=== PATIENT | male | born 1935 | race Caucasian/White ===

== ENCOUNTER 2020-08-30 17:28 | Inpatient (IN) ==
[2020-08-31 08:17] LABS: Basophils % 0.3 %; Eosinophils # 0.1 K/mcL (0.0-0.6); Eosinophils % 0.9 %; Hemoglobin 11.7 g/dL (12.9-16.9); Immature Granulocytes % 0.5 % (0-4); Lymphocytes # 0.7 K/mcL (0.6-4.6); Lymphocytes % 10.8 %; Mean Corpuscular HGB Conc 33.4 g/dL (31.6-35.5); Mean Corpuscular Hemoglobin 31.8 pg (28.0-33.3); Mean Corpuscular Volume 95.1 fL (83.0-100.0); Mean Platelet Volume 9.6 fL (9.4-12.4); Monocytes # 0.3 K/mcL (0.0-1.3); Monocytes % 5.2 %; Neutrophils # 5.4 K/mcL (1.6-8.9); Platelet Count 177 K/mcL (140-400); Red Blood Count 3.68 M/mcL (4.19-5.50); Red Cell Distribution Width 12.2 % (11.5-14.5); Segmented Neutrophils % 82.3 %; White Blood Count 6.5 K/mcL (4.3-11.1)
[2020-08-31 08:33] LABS: BUN/Creatinine Ratio 24 (6-26); Blood Urea Nitrogen 16 mg/dL (8-23); Calcium 8.2 mg/dL (8.6-10.3); Carbon Dioxide 28 mEq/L (23-29); Chloride 97 mEq/L (98-107); Glucose 104 mg/dL (70-105); Osmolality,Calculated 271 (280-300); Potassium 3.8 mEq/L (3.5-5.1); Sodium 130 mEq/L (136-145); eGFR For African Americans > 60 (> 60); eGFR For Non-African Americans > 60 (> 60)
[2020-08-31] MEDS: Aspirin Enteric Coated 81 MG Tablet PO SCH (09:07)
[2020-08-31] MEDS: *HR* Rivaroxaban 10 MG TABLET PO SCH (09:07)
[2020-08-31 11:00] LABS: Bilirubin,Urine Small (Negative); Blood,Urine Trace-intact (Negative); Clarity,Urine Clear (Clear); Color,Urine Yellow (Yellow); Glucose,Urine (UA) 100 mg/dL (Normal); Ketones,Urine Trace mg/dL (Negative); Leukocyte Esterase,Urine Negative (Negative); Nitrite,Urine Negative (Negative); PH,Urine 8.5 pH Units (5.0-8.0); Protein,Urine 30 mg/dL (Neg-Trace); Urobilinogen,Urine >=8.0 mg/dL (Normal)
[2020-08-31 11:44] LABS: RBC,Urine 15-30 per hpf (0-3)
[2020-08-31 11:45] LABS: Sperm,Urine Present per hpf (None Seen)
[2020-08-31] MEDS: Acetaminophen 325 MG TABLET PO PRN (16:31)
[2020-09-01] MEDS: Acetaminophen 325 MG TABLET PO PRN ×2 (01:35→20:00)
[2020-09-01] MEDS: Aspirin Enteric Coated 81 MG Tablet PO SCH (08:40)
[2020-09-01] MEDS: *HR* Rivaroxaban 10 MG TABLET PO SCH (08:40)
[2020-09-02] MEDS: Aspirin Enteric Coated 81 MG Tablet PO SCH (08:40)
[2020-09-02] MEDS: Multivit/Ca/Min/Fe/FA 1 TAB TABLET PO SCH (08:40)
[2020-09-02] MEDS: Cholecalciferol (D-3) 1,000 UNIT (25MCG) TABLET PO SCH (08:40)
[2020-09-02] MEDS: *HR* Rivaroxaban 10 MG TABLET PO SCH (08:40)
[2020-09-02] MEDS: Acetaminophen 325 MG TABLET PO PRN (21:05)
[2020-09-03] MEDS: Acetaminophen 325 MG TABLET PO PRN ×2 (06:20→17:46)
[2020-09-03] MEDS: Cholecalciferol (D-3) 1,000 UNIT (25MCG) TABLET PO SCH (10:19)
[2020-09-03] MEDS: Aspirin Enteric Coated 81 MG Tablet PO SCH (10:19)
[2020-09-03] MEDS: Multivit/Ca/Min/Fe/FA 1 TAB TABLET PO SCH (10:19)
[2020-09-04] MEDS: Acetaminophen 325 MG TABLET PO PRN ×2 (05:10→20:43)
[2020-09-04] MEDS: Multivit/Ca/Min/Fe/FA 1 TAB TABLET PO SCH (09:46)
[2020-09-04] MEDS: Aspirin Enteric Coated 81 MG Tablet PO SCH (09:46)
[2020-09-04] MEDS: Cholecalciferol (D-3) 1,000 UNIT (25MCG) TABLET PO SCH (09:46)
[2020-09-05] MEDS: Acetaminophen 325 MG TABLET PO PRN ×2 (06:51→19:10)
[2020-09-05] MEDS: Aspirin Enteric Coated 81 MG Tablet PO SCH (09:47)
[2020-09-05] MEDS: Cholecalciferol (D-3) 1,000 UNIT (25MCG) TABLET PO SCH (09:47)
[2020-09-05] MEDS: Multivit/Ca/Min/Fe/FA 1 TAB TABLET PO SCH (09:47)
[2020-09-06] MEDS: Aspirin Enteric Coated 81 MG Tablet PO SCH (07:59)
[2020-09-06] MEDS: Multivit/Ca/Min/Fe/FA 1 TAB TABLET PO SCH (08:00)
[2020-09-06] MEDS: Cholecalciferol (D-3) 1,000 UNIT (25MCG) TABLET PO SCH (08:00)
[2020-09-06] MEDS: Acetaminophen 325 MG TABLET PO PRN (17:09)
[2020-09-07] MEDS: Aspirin Enteric Coated 81 MG Tablet PO SCH (09:50)
[2020-09-07] MEDS: Multivit/Ca/Min/Fe/FA 1 TAB TABLET PO SCH (09:50)
[2020-09-07] MEDS: Cholecalciferol (D-3) 1,000 UNIT (25MCG) TABLET PO SCH (09:50)
[2020-09-07] MEDS: Acetaminophen 325 MG TABLET PO PRN (18:35)
[2020-09-08] MEDS: Cholecalciferol (D-3) 1,000 UNIT (25MCG) TABLET PO SCH (08:04)
[2020-09-08] MEDS: Multivit/Ca/Min/Fe/FA 1 TAB TABLET PO SCH (08:04)
[2020-09-08] MEDS: Aspirin Enteric Coated 81 MG Tablet PO SCH (08:04)
[2020-09-09] MEDS: Aspirin Enteric Coated 81 MG Tablet PO SCH (08:38)
[2020-09-09] MEDS: Cholecalciferol (D-3) 1,000 UNIT (25MCG) TABLET PO SCH (08:38)
[2020-09-09] MEDS: Multivit/Ca/Min/Fe/FA 1 TAB TABLET PO SCH (08:38)
[2020-09-10] MEDS: Cholecalciferol (D-3) 1,000 UNIT (25MCG) TABLET PO SCH (07:41)
[2020-09-10] MEDS: Multivit/Ca/Min/Fe/FA 1 TAB TABLET PO SCH (07:41)
[2020-09-10] MEDS: Aspirin Enteric Coated 81 MG Tablet PO SCH (07:41)
[2020-09-10] MEDS: Sennosides/Docusate Sodium TABLET PO SCH (08:40)
[2020-09-11] MEDS: Sennosides/Docusate Sodium TABLET PO SCH (08:22)
[2020-09-11] MEDS: Cholecalciferol (D-3) 1,000 UNIT (25MCG) TABLET PO SCH (08:22)
[2020-09-11] MEDS: Aspirin Enteric Coated 81 MG Tablet PO SCH (08:23)
[2020-09-11] MEDS: Multivit/Ca/Min/Fe/FA 1 TAB TABLET PO SCH (08:23)
[2020-09-12] MEDS: Cholecalciferol (D-3) 1,000 UNIT (25MCG) TABLET PO SCH (08:10)
[2020-09-12] MEDS: Aspirin Enteric Coated 81 MG Tablet PO SCH (08:10)
[2020-09-12] MEDS: Sennosides/Docusate Sodium TABLET PO SCH (08:10)
[2020-09-12] MEDS: Multivit/Ca/Min/Fe/FA 1 TAB TABLET PO SCH (08:10)
[2020-09-13 07:21] LABS: Bilirubin,Urine Negative (Negative); Blood,Urine Small (Negative); Clarity,Urine Cloudy (Clear); Color,Urine Yellow (Yellow); Glucose,Urine (UA) Normal (Normal); Ketones,Urine Negative (Negative); Leukocyte Esterase,Urine Large (Negative); Nitrite,Urine Positive (Negative); PH,Urine >=9.0 pH Units (5.0-8.0); Protein,Urine 30 mg/dL (Neg-Trace); Specific Gravity,Urine 1.015 (1.010-1.025)
[2020-09-13 07:36] LABS: Bacteria,Urine Many per hpf (None-Few)
[2020-09-13] MEDS: Aspirin Enteric Coated 81 MG Tablet PO SCH (08:19)
[2020-09-13] MEDS: Multivit/Ca/Min/Fe/FA 1 TAB TABLET PO SCH (08:19)
[2020-09-13] MEDS: Cholecalciferol (D-3) 1,000 UNIT (25MCG) TABLET PO SCH (08:20)
[2020-09-13] MEDS: Sennosides/Docusate Sodium TABLET PO SCH (08:23)
[2020-09-13] MEDS: Acetaminophen 325 MG TABLET PO PRN (08:24)
[2020-09-14] MEDS: Sennosides/Docusate Sodium TABLET PO SCH (09:30)
[2020-09-14] MEDS: Cholecalciferol (D-3) 1,000 UNIT (25MCG) TABLET PO SCH (09:30)
[2020-09-14] MEDS: Multivit/Ca/Min/Fe/FA 1 TAB TABLET PO SCH (09:31)
[2020-09-14] MEDS: Aspirin Enteric Coated 81 MG Tablet PO SCH (09:31)
[2020-09-14] MEDS: Acetaminophen 325 MG TABLET PO PRN (23:04)
[2020-09-15] MEDS: Sennosides/Docusate Sodium TABLET PO SCH (08:49)
[2020-09-15] MEDS: Cholecalciferol (D-3) 1,000 UNIT (25MCG) TABLET PO SCH (08:49)
[2020-09-15] MEDS: Multivit/Ca/Min/Fe/FA 1 TAB TABLET PO SCH (08:49)
[2020-09-15] MEDS: Aspirin Enteric Coated 81 MG Tablet PO SCH (08:49)
[2020-09-16] MEDS: Sennosides/Docusate Sodium TABLET PO SCH (07:57)
[2020-09-16] MEDS: Aspirin Enteric Coated 81 MG Tablet PO SCH (07:57)
[2020-09-16] MEDS: Multivit/Ca/Min/Fe/FA 1 TAB TABLET PO SCH (07:57)
[2020-09-16] MEDS: Cholecalciferol (D-3) 1,000 UNIT (25MCG) TABLET PO SCH (07:58)
[2020-09-17] MEDS: Aspirin Enteric Coated 81 MG Tablet PO SCH (08:15)
[2020-09-17] MEDS: Sennosides/Docusate Sodium TABLET PO SCH (08:15)
[2020-09-17] MEDS: Cholecalciferol (D-3) 1,000 UNIT (25MCG) TABLET PO SCH (08:15)
[2020-09-17] MEDS: Multivit/Ca/Min/Fe/FA 1 TAB TABLET PO SCH (08:16)
[2020-09-18 06:11] LABS: Basophils % 0.6 %; Eosinophils # 0.1 K/mcL (0.0-0.6); Eosinophils % 2.1 %; Hematocrit 27.2 % (37.5-50.1); Hemoglobin 9.1 g/dL (12.9-16.9); Immature Granulocytes % 0.4 % (0-4); Lymphocytes # 0.7 K/mcL (0.6-4.6); Lymphocytes % 13.6 %; Mean Corpuscular HGB Conc 33.5 g/dL (31.6-35.5); Mean Corpuscular Hemoglobin 31.3 pg (28.0-33.3); Mean Corpuscular Volume 93.5 fL (83.0-100.0); Mean Platelet Volume 8.9 fL (9.4-12.4); Monocytes # 0.4 K/mcL (0.0-1.3); Monocytes % 8.4 %; Neutrophils # 3.9 K/mcL (1.6-8.9); Platelet Count 230 K/mcL (140-400); Red Blood Count 2.91 M/mcL (4.19-5.50); Red Cell Distribution Width 12.7 % (11.5-14.5); Segmented Neutrophils % 74.9 %; White Blood Count 5.2 K/mcL (4.3-11.1)
[2020-09-18 06:37] LABS: BUN/Creatinine Ratio 47 (6-26); Blood Urea Nitrogen 25 mg/dL (8-23); Carbon Dioxide 26 mEq/L (23-29); Chloride 98 mEq/L (98-107); Glucose 94 mg/dL (70-105); Osmolality,Calculated 276 (280-300); Potassium 4.2 mEq/L (3.5-5.1); Sodium 131 mEq/L (136-145); eGFR For African Americans > 60 (> 60); eGFR For Non-African Americans > 60 (> 60)
[2020-09-18] MEDS: Sennosides/Docusate Sodium TABLET PO SCH (08:35)
[2020-09-18] MEDS: Aspirin Enteric Coated 81 MG Tablet PO SCH (08:36)
[2020-09-18] MEDS: Cholecalciferol (D-3) 1,000 UNIT (25MCG) TABLET PO SCH (08:36)
[2020-09-18] MEDS: Multivit/Ca/Min/Fe/FA 1 TAB TABLET PO SCH (08:36)
[2020-09-19] MEDS: Cholecalciferol (D-3) 1,000 UNIT (25MCG) TABLET PO SCH (08:43)
[2020-09-19] MEDS: Sennosides/Docusate Sodium TABLET PO SCH (08:43)
[2020-09-19] MEDS: Multivit/Ca/Min/Fe/FA 1 TAB TABLET PO SCH (08:44)
[2020-09-19] MEDS: Aspirin Enteric Coated 81 MG Tablet PO SCH (08:44)
[2020-09-20] MEDS: Aspirin Enteric Coated 81 MG Tablet PO SCH (09:35)
[2020-09-20] MEDS: Multivit/Ca/Min/Fe/FA 1 TAB TABLET PO SCH (09:35)
[2020-09-20] MEDS: Cholecalciferol (D-3) 1,000 UNIT (25MCG) TABLET PO SCH (09:36)
[2020-09-20] MEDS: Sennosides/Docusate Sodium TABLET PO SCH (09:36)
[2020-09-21] MEDS: Aspirin Enteric Coated 81 MG Tablet PO SCH (08:47)
[2020-09-21] MEDS: Cholecalciferol (D-3) 1,000 UNIT (25MCG) TABLET PO SCH (08:47)
[2020-09-21] MEDS: Sennosides/Docusate Sodium TABLET PO SCH (08:48)
[2020-09-21] MEDS: Multivit/Ca/Min/Fe/FA 1 TAB TABLET PO SCH (08:48)
[2020-09-21] MEDS: Furosemide 20 MG TABLET PO SCH (17:34)
[2020-09-22] MEDS: Cholecalciferol (D-3) 1,000 UNIT (25MCG) TABLET PO SCH (09:32)
[2020-09-22] MEDS: Aspirin Enteric Coated 81 MG Tablet PO SCH (09:32)
[2020-09-22] MEDS: Sennosides/Docusate Sodium TABLET PO SCH (09:32)
[2020-09-22] MEDS: Multivit/Ca/Min/Fe/FA 1 TAB TABLET PO SCH (09:33)
[2020-09-22] MEDS: Furosemide 20 MG TABLET PO SCH ×2 (09:33→16:04)
[2020-09-23] MEDS: Sennosides/Docusate Sodium TABLET PO SCH (09:47)
[2020-09-23] MEDS: Aspirin Enteric Coated 81 MG Tablet PO SCH (09:48)
[2020-09-23] MEDS: Furosemide 20 MG TABLET PO SCH ×2 (09:50→16:40)
[2020-09-23] MEDS: Cholecalciferol (D-3) 1,000 UNIT (25MCG) TABLET PO SCH (09:50)
[2020-09-23] MEDS: Multivit/Ca/Min/Fe/FA 1 TAB TABLET PO SCH (09:50)
[2020-09-24] MEDS: Sennosides/Docusate Sodium TABLET PO SCH (09:07)
[2020-09-24] MEDS: Aspirin Enteric Coated 81 MG Tablet PO SCH (09:07)
[2020-09-24] MEDS: Furosemide 20 MG TABLET PO SCH ×2 (09:07→16:31)
[2020-09-24] MEDS: Multivit/Ca/Min/Fe/FA 1 TAB TABLET PO SCH (09:07)
[2020-09-24] MEDS: Cholecalciferol (D-3) 1,000 UNIT (25MCG) TABLET PO SCH (09:07)
[2020-09-24 09:32] LABS: Hematocrit 32.3 % (37.5-50.1); Hemoglobin 10.4 g/dL (12.9-16.9); Mean Corpuscular HGB Conc 32.2 g/dL (31.6-35.5); Mean Corpuscular Hemoglobin 30.2 pg (28.0-33.3); Mean Corpuscular Volume 93.9 fL (83.0-100.0); Mean Platelet Volume 9.1 fL (9.4-12.4); Platelet Count 286 K/mcL (140-400); Red Blood Count 3.44 M/mcL (4.19-5.50); White Blood Count 5.3 K/mcL (4.3-11.1)
[2020-09-24 09:45] LABS: BUN/Creatinine Ratio 40 (6-26); Blood Urea Nitrogen 23 mg/dL (8-23); Calcium 8.3 mg/dL (8.6-10.3); Carbon Dioxide 29 mEq/L (23-29); Chloride 99 mEq/L (98-107); Glucose 106 mg/dL (70-105); Osmolality,Calculated 282 (280-300); Potassium 3.8 mEq/L (3.5-5.1); Sodium 134 mEq/L (136-145); eGFR For African Americans > 60 (> 60); eGFR For Non-African Americans > 60 (> 60)
[2020-09-25] MEDS: Furosemide 20 MG TABLET PO SCH ×2 (08:53→16:02)
[2020-09-25] MEDS: Multivit/Ca/Min/Fe/FA 1 TAB TABLET PO SCH (08:53)
[2020-09-25] MEDS: Aspirin Enteric Coated 81 MG Tablet PO SCH (08:53)
[2020-09-25] MEDS: Cholecalciferol (D-3) 1,000 UNIT (25MCG) TABLET PO SCH (08:53)
[2020-09-25] MEDS: Sennosides/Docusate Sodium TABLET PO SCH (08:53)
[2020-09-25] MEDS: Acetaminophen 325 MG TABLET PO PRN (21:48)
[2020-09-26] MEDS: Aspirin Enteric Coated 81 MG Tablet PO SCH (09:59)
[2020-09-26] MEDS: Multivit/Ca/Min/Fe/FA 1 TAB TABLET PO SCH (09:59)
[2020-09-26] MEDS: Sennosides/Docusate Sodium TABLET PO SCH (09:59)
[2020-09-26] MEDS: Furosemide 20 MG TABLET PO SCH ×2 (09:59→17:16)
[2020-09-26] MEDS: Cholecalciferol (D-3) 1,000 UNIT (25MCG) TABLET PO SCH (10:00)
[2020-09-26] MEDS: Acetaminophen 325 MG TABLET PO PRN (22:06)
[2020-09-27] MEDS: Sennosides/Docusate Sodium TABLET PO SCH (07:58)
[2020-09-27] MEDS: Furosemide 20 MG TABLET PO SCH ×2 (07:59→16:19)
[2020-09-27] MEDS: Multivit/Ca/Min/Fe/FA 1 TAB TABLET PO SCH (07:59)
[2020-09-27] MEDS: Aspirin Enteric Coated 81 MG Tablet PO SCH (07:59)
[2020-09-27] MEDS: Cholecalciferol (D-3) 1,000 UNIT (25MCG) TABLET PO SCH (07:59)
[2020-09-27] MEDS: Acetaminophen 325 MG TABLET PO PRN (22:13)
[2020-09-28] MEDS: Aspirin Enteric Coated 81 MG Tablet PO SCH (09:03)
[2020-09-28] MEDS: Cholecalciferol (D-3) 1,000 UNIT (25MCG) TABLET PO SCH (09:03)
[2020-09-28] MEDS: Sennosides/Docusate Sodium TABLET PO SCH (09:03)
[2020-09-28] MEDS: Furosemide 20 MG TABLET PO SCH ×2 (09:03→16:01)
[2020-09-28] MEDS: Multivit/Ca/Min/Fe/FA 1 TAB TABLET PO SCH (09:03)
[2020-09-28] MEDS: Acetaminophen 325 MG TABLET PO PRN (21:49)
[2020-09-29] MEDS: Cholecalciferol (D-3) 1,000 UNIT (25MCG) TABLET PO SCH (08:52)
[2020-09-29] MEDS: Aspirin Enteric Coated 81 MG Tablet PO SCH (08:52)
[2020-09-29] MEDS: Sennosides/Docusate Sodium TABLET PO SCH (08:52)
[2020-09-29] MEDS: Furosemide 20 MG TABLET PO SCH ×2 (08:53→17:10)
[2020-09-29] MEDS: Multivit/Ca/Min/Fe/FA 1 TAB TABLET PO SCH (08:56)
[2020-09-29] MEDS: Acetaminophen 325 MG TABLET PO PRN (23:48)
[2020-09-30] MEDS: Furosemide 20 MG TABLET PO SCH ×2 (08:47→17:03)
[2020-09-30] MEDS: Multivit/Ca/Min/Fe/FA 1 TAB TABLET PO SCH (08:47)
[2020-09-30] MEDS: Aspirin Enteric Coated 81 MG Tablet PO SCH (08:47)
[2020-09-30] MEDS: Sennosides/Docusate Sodium TABLET PO SCH (08:48)
[2020-09-30] MEDS: Cholecalciferol (D-3) 1,000 UNIT (25MCG) TABLET PO SCH (08:48)
[2020-10-01] MEDS: Cholecalciferol (D-3) 1,000 UNIT (25MCG) TABLET PO SCH (09:18)
[2020-10-01] MEDS: Aspirin Enteric Coated 81 MG Tablet PO SCH (09:19)
[2020-10-01] MEDS: Furosemide 20 MG TABLET PO SCH ×2 (09:19→16:49)
[2020-10-01] MEDS: Sennosides/Docusate Sodium TABLET PO SCH (09:19)
[2020-10-01] MEDS: Multivit/Ca/Min/Fe/FA 1 TAB TABLET PO SCH (09:19)
[2020-10-02 07:04] LABS: Basophils % 0.4 %; Eosinophils # 0.1 K/mcL (0.0-0.6); Eosinophils % 1.7 %; Hematocrit 31.3 % (37.5-50.1); Hemoglobin 9.9 g/dL (12.9-16.9); Immature Granulocytes % 0.4 % (0-4); Lymphocytes # 0.6 K/mcL (0.6-4.6); Mean Corpuscular HGB Conc 31.6 g/dL (31.6-35.5); Mean Corpuscular Hemoglobin 29.4 pg (28.0-33.3); Mean Corpuscular Volume 92.9 fL (83.0-100.0); Mean Platelet Volume 9.4 fL (9.4-12.4); Monocytes # 0.3 K/mcL (0.0-1.3); Monocytes % 6.2 %; Neutrophils # 3.7 K/mcL (1.6-8.9); Platelet Count 241 K/mcL (140-400); Red Blood Count 3.37 M/mcL (4.19-5.50); Red Cell Distribution Width 13.4 % (11.5-14.5); Segmented Neutrophils % 79.3 %; White Blood Count 4.7 K/mcL (4.3-11.1)
[2020-10-02 07:58] LABS: BUN/Creatinine Ratio 44 (6-26); Blood Urea Nitrogen 22 mg/dL (8-23); Calcium 7.9 mg/dL (8.6-10.3); Carbon Dioxide 29 mEq/L (23-29); Chloride 102 mEq/L (98-107); Glucose 87 mg/dL (70-105); Osmolality,Calculated 285 (280-300); Potassium 3.7 mEq/L (3.5-5.1); Sodium 136 mEq/L (136-145); eGFR For African Americans > 60 (> 60); eGFR For Non-African Americans > 60 (> 60)
[2020-10-02] MEDS: Furosemide 20 MG TABLET PO SCH ×2 (08:08→16:49)
[2020-10-02] MEDS: Aspirin Enteric Coated 81 MG Tablet PO SCH (08:08)
[2020-10-02] MEDS: Multivit/Ca/Min/Fe/FA 1 TAB TABLET PO SCH (08:08)
[2020-10-02] MEDS: Cholecalciferol (D-3) 1,000 UNIT (25MCG) TABLET PO SCH (08:09)
[2020-10-02] MEDS: Sennosides/Docusate Sodium TABLET PO SCH (08:09)
[2020-10-03] MEDS: Cholecalciferol (D-3) 1,000 UNIT (25MCG) TABLET PO SCH (09:15)
[2020-10-03] MEDS: Aspirin Enteric Coated 81 MG Tablet PO SCH (09:15)
[2020-10-03] MEDS: Furosemide 20 MG TABLET PO SCH ×2 (09:16→16:40)
[2020-10-03] MEDS: Multivit/Ca/Min/Fe/FA 1 TAB TABLET PO SCH (09:16)
[2020-10-03] MEDS: Sennosides/Docusate Sodium TABLET PO SCH (09:16)
[2020-10-04] MEDS: Furosemide 20 MG TABLET PO SCH ×2 (09:16→16:58)
[2020-10-04] MEDS: Multivit/Ca/Min/Fe/FA 1 TAB TABLET PO SCH (09:16)
[2020-10-04] MEDS: Cholecalciferol (D-3) 1,000 UNIT (25MCG) TABLET PO SCH (09:17)
[2020-10-04] MEDS: Aspirin Enteric Coated 81 MG Tablet PO SCH (09:17)
[2020-10-04] MEDS: Sennosides/Docusate Sodium TABLET PO SCH (09:17)
[2020-10-04] MEDS: Acetaminophen 325 MG TABLET PO PRN (22:27)
[2020-10-05] MEDS: Multivit/Ca/Min/Fe/FA 1 TAB TABLET PO SCH (08:49)
[2020-10-05] MEDS: Aspirin Enteric Coated 81 MG Tablet PO SCH (08:49)
[2020-10-05] MEDS: Furosemide 20 MG TABLET PO SCH ×2 (08:49→16:39)
[2020-10-05] MEDS: Sennosides/Docusate Sodium TABLET PO SCH (08:49)
[2020-10-05] MEDS: Cholecalciferol (D-3) 1,000 UNIT (25MCG) TABLET PO SCH (08:49)
[2020-10-05] MEDS: Acetaminophen 325 MG TABLET PO PRN (16:34)
[2020-10-06] MEDS: Acetaminophen 325 MG TABLET PO PRN (03:21)
[2020-10-06] MEDS: Cholecalciferol (D-3) 1,000 UNIT (25MCG) TABLET PO SCH (10:05)
[2020-10-06] MEDS: Multivit/Ca/Min/Fe/FA 1 TAB TABLET PO SCH (10:05)
[2020-10-06] MEDS: Aspirin Enteric Coated 81 MG Tablet PO SCH (10:05)
[2020-10-06] MEDS: Furosemide 20 MG TABLET PO SCH ×3 (10:05→16:29)
[2020-10-06] MEDS: Sennosides/Docusate Sodium TABLET PO SCH (10:06)
[2020-10-07] MEDS: Acetaminophen 325 MG TABLET PO PRN (05:18)
[2020-10-07 05:35] LABS: Bilirubin,Urine Negative (Negative); Blood,Urine Moderate (Negative); Clarity,Urine Turbid (Clear); Color,Urine Yellow (Yellow); Glucose,Urine (UA) Normal (Normal); Ketones,Urine Negative (Negative); Leukocyte Esterase,Urine Large (Negative); Nitrite,Urine Negative (Negative); Protein,Urine 30 mg/dL (Neg-Trace); Specific Gravity,Urine 1.015 (1.010-1.025)
[2020-10-07 05:46] LABS: WBC,Urine TNTC per hpf (0-3)
[2020-10-07 05:51] LABS: Squamous Epithelial Cell,Urine Moderate per hpf (None-Few)
[2020-10-07 05:52] LABS: Bacteria,Urine Moderate per hpf (None-Few); RBC,Urine 30-50 per hpf (0-3)
[2020-10-07 06:43] VITALS: BP 117/70
[2020-10-07] MEDS ORDERED: Furosemide 40 MG TABLET PO ONE (07:44)
[2020-10-07] MEDS ORDERED: Sulfamethoxazole/Trimeth DS 1 EACH TABLET PO SCH (09:00)
[2020-10-07] MEDS: Sennosides/Docusate Sodium TABLET PO SCH (09:03)
[2020-10-07] MEDS: Multivit/Ca/Min/Fe/FA 1 TAB TABLET PO SCH (09:03)
[2020-10-07] MEDS: Cholecalciferol (D-3) 1,000 UNIT (25MCG) TABLET PO SCH (09:04)
[2020-10-07] MEDS: Aspirin Enteric Coated 81 MG Tablet PO SCH (09:04)
[2020-10-07] MEDS: Furosemide 20 MG TABLET PO SCH (09:07)
== END 2020-10-07 15:55 | DRG 945 ==
LOC: INPPIK 19:00
PROVIDERS: ADMIT Family Medicine; ATTEND Family Medicine